=== PATIENT | male | born 1935 | race Caucasian/White ===

== ENCOUNTER 2018-12-06 08:32 | Emergency (ER) | payer MEDICARE, MEDICAID ==
[2018-12-06] MEDS ORDERED: Sodium Chloride 0.9% 1,000 ML IV ONE (08:46)
--- NOTE | 2018-12-06 09:11 | CR ---
[id number] RAD/RAD Chest PA or AP 1V EXAM: FRONTAL CHEST INDICATION: Fall with head trauma. COMPARISON: None. DISCUSSION: The lungs are hypoinflated. Chronic right rib fractures. Cardiomegaly without evidence of congestive heart failure. IMPRESSION: 1. No acute findings. Jairo Doran MD 12/06/18 0909 Thank you for allowing us to participate in the care of your patient.
[2018-12-06 09:26] LABS: ANION GAP 13.3 mmol/L (10-20)
--- NOTE | 2018-12-06 09:55 | CT ---
[id number] CT/CT Head WO IV EXAM: CT Head WO IV CLINICAL DATA: TRAUMA COMPARISON: NO PREVIOUS SIMILAR EXAM IS AVAILABLE FOR COMPARISON. FINDINGS: There is no mass or mass effect. There is no hemorrhage or hydrocephalus. There are no extra-axial fluid collections. There are no sites of abnormal attenuation. IMPRESSION: NO PLAIN CT EVIDENCE OF ACUTE INTRACRANIAL PROCESS. Budyd Oneal MD 12/06/18 0952 Thank you for allowing us to participate in the care of your patient.
[2018-12-06] MEDS ORDERED: cefTRIAXone 2 GM Vial IVPUSH ONE (10:35)
--- NOTE | 2018-12-07 07:02 | EDM.PDOC ---
ED HPI GENERAL MEDICAL PROBLEM - General Chief Complaint: Head Injury Time Seen by Provider: 12/06/18 08:40 Source of Information: Reports: Patient History Limitations: Reports: No Limitations - History of Present Illness INITIAL COMMENTS - FREE TEXT/NARRATIVE: Pt. presents to ER with fall, decreased loc, an lethergy. Pt. has been lethargic for several days prior to the fall. He had the fall in the night and was sent to ER in the AM. He has had coarse lung sounds. No nausea, vomiting, or diarrhea. No melena, hematochezia, or hemetemesis. Pt. was transported via EMS. EMS states that he was minimally responsive. Pt. was able to answer questions, however. He has dementia and offers no complaint. Onset Date: 12/06/18 Location: Reports: Generalized - Related Data Allergies Allergy/AdvReac Type Severity Reaction Status Date / Time caffeine Allergy Cannot Verified 12/06/18 08:46 Remember carbidopa [From Sinemet] Allergy Cannot Verified 12/06/18 08:46 Remember levodopa [From Sinemet] Allergy Cannot Verified 12/06/18 08:46 Remember morphine Allergy Cannot Verified 12/06/18 08:39 Remember Home Meds: Home Meds Budesonide/Formoterol Fumarate [Symbicort 160-4.5 Mcg Inhaler] 2 puff BID [History] Gabapentin [Neurontin] 300 mg DAILY 12/06/18 [History] Levothyroxine Sodium [Synthroid] 75 mcg DAILY 12/06/18 [History] Pantoprazole Sodium [Protonix] 40 mg PO DAILY 12/06/18 [History] Pramoxine HCl [Sarna Sensitive] 1 applic DAILY 12/06/18 [History] QUEtiapine Fumarate [Quetiapine Fumarate] 100 mg DAILY 12/06/18 [History] Sertraline HCl 50 mg DAILY 12/06/18 [History] Tamsulosin HCl 1 cap DAILY 12/06/18 [History] Triamcinolone Acetonide [Triamcinolone Acetonide 0.5%] 1 applic BID 12/06/18 [ History] Past Medical History HEENT History: Reports: Hard of Hearing Respiratory History: Reports: Asthma, COPD Gastrointestinal History: Reports: Chronic Constipation, GERD, Other (See Below) Other Gastrointestinal History: 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 Genitourinary History: Reports: Other (See Below) Other Genitourinary History: benign prostatic hyperplasia Musculoskeletal History: Reports: Other (See Below) Other Musculoskeletal History: muscle weakness Neurological History: Reports: Alzheimers Disease, Other (See Below) Other Neuro History: restless legs Psychiatric History: Reports: Anxiety, Dementia, Depression, Other (See Below) Other Psychiatric History: personality and behavioral disorder Endocrine/Metabolic History: Reports: Hypothyroidism Hematologic History: Reports: Anemia Social & Family History - Tobacco Use Smoking Status *Q: Unknown Ever Smoked - Recreational Drug Use Recreational Drug Use: No ED ROS GENERAL - Review of Systems Review Of Systems: ROS reveals no pertinent complaints other than HPI. ED EXAM, HEAD INJURY - Physical Exam Exam: See Below Exam Limited By: No Limitations General Appearance: Alert, WD/WN, No Apparent Distress Head: Atraumatic, Normocephalic Eyes: Bilateral Eye: EOMI, Normal Fundi, Normal Inspection, PERRL Ears: Normal External Exam, Normal Canal, Hearing Grossly Normal, Normal TMs Nose: Normal Inspection, Normal Mucousa, No Blood Throat/Mouth: Normal Inspection, Normal Lips, Normal Teeth, Normal Gums, Normal Oropharynx, Normal Voice, No Airway Compromise Neck: Non-Tender, Full Range of Motion, Normal Alignment, Normal Inspection Respiratory: No Respiratory Distress, No Accessory Muscle Use, Chest Non-Tender , Rhonchi Cardiovascular: Normal Peripheral Pulses, Regular Rate, Rhythm, No Edema, No JVD , No Murmur GI/Abdominal Exam: Normal Bowel Sounds, Soft, Non-Tender, No Distention (Male) Exam: Deferred Rectal (Males) Exam: Deferred Back Exam: Full Range of Motion, Normal Inspection, NT Extremities: Normal Inspection, Normal Range of Motion, Non-Tender, No Pedal Edema, Normal Capillary Refill Neurologic: labor/excavator II-XII nml As Tested, No Motor/Sensory Deficits, Alert, Normal Mood/Affect, Oriented x 3 DTR: 2+: Patella (R), Patella (L) Skin: Warm/Dry, Pallor - Teressa Coma Score Best Eye Response (Teressa): (4) Open Spontaneously Best Verbal Response (Teressa): (5) Oriented Best Motor Response ([place]): (6) Obeys Commands Course - Vital Signs Last Recorded V/S: Last Vital Signs Temp 36.5 C 12/06/18 08:32 Pulse 73 12/06/18 10:49 Resp 22 H 12/06/18 10:49 BP 120/65 12/06/18 10:49 Pulse Ox 94 L 12/06/18 10:49 - Orders/Labs/Meds Orders: Active Orders 24 hr Category Date Time Status Dietary Supplements [RC] BIDMEALS Care 12/06/18 10:35 Active Insert Urinary Catheter [OM.PC] Q24H Care 12/06/18 10:00 Ordered Oxygen Therapy [RC] PRN Care 12/06/18 08:40 Active Urinary Catheter Assessment [RC] ASDIRECTED Care 12/06/18 10:14 Active CULTURE BLOOD [BC] Stat Lab 12/06/18 08:52 Received CULTURE BLOOD [BC] Stat Lab 12/06/18 08:58 Received Blood Culture x2 Reflex Set [OM.PC] Stat Oth 12/06/18 08:42 Ordered Labs: Laboratory Tests 12/06/18 12/06/18 12/06/18 Range/Units 08:52 08:52 08:52 WBC 8.8 (4.0-10.0) x10^3/uL RBC 3.87 L (4.5-6.0) x10^6/uL Hgb 12.0 L (14.0-18.0) g/dL Hct 37.7 L (40.0-52.0) % MCV 97.4 H (78.0-93.0) fL MCH 31.0 (26.0-32.0) pg MCHC 31.8 L (32.0-36.0) g/dL RDW Coeff of Monica 13.3 (10.0-15.0) % Plt Count 205 (130-400) x10^3/uL Neut % (Auto) 78.8 (50.0-80.0) % Lymph % (Auto) 9.4 L (25.0-50.0) % [place] % (Auto) 9.0 (2.0-11.0) % Eos % (Auto) 2.7 (0.0-4.0) % Baso % (Auto) 0.1 L (0.2-1.2) % PT 10.3 (9.6-11.4) SEC INR 1.0 L (2.0-3.5) Sodium 141 (136-145) mmol/L Potassium 4.3 (3.5-5.1) mmol/L Chloride 106 (98-107) mmol/L Carbon Dioxide 26 (21-32) mmol/L Anion Gap 13.3 (10-20) mmol/L BUN 24 H (7-18) mg/dL Creatinine 1.4 H (0.70-1.30) mg/dL Est Cr Clr Drug Dosing 37.32 mL/min Estimated GFR (MDRD) 48 Glucose 135 H (74-106) mg/dL Lactic Acid (0.4-2.0) mmol/L Calcium 8.5 (8.5-10.1) mg/dL Corrected Calcium 9.14 (8.5-10.1) mg/dL Phosphorus 2.8 (2.6-4.7) mg/dL Magnesium 2.0 (1.8-2.4) mg/dL Total Bilirubin 0.9 (0.2-1.0) mg/dL AST 21 (15-37) U/L ALT 18 (16-63) U/L Alkaline Phosphatase 66 (46-116) U/L C-Reactive Protein 5.2 H (<=0.9) mg/dL Total Protein 6.8 (6.4-8.2) g/dL Albumin 3.2 L (3.4-5.0) g/dL Globulin 3.6 Albumin/Globulin Ratio 0.89 Urine Color (YELLOW) Urine Appearance (CLEAR) Urine pH (5.0-8.0) Ur Specific [place] Urine Protein (NEGATIVE) mg/dL Urine Glucose (UA) (NEGATIVE) mg/dL Urine Ketones (NEGATIVE) mg/dL Urine Occult Blood (NEGATIVE) Urine Nitrite (NEGATIVE) Urine Bilirubin (NEGATIVE) Urine Urobilinogen (0.2) EU/dL Ur Leukocyte Esterase (NEGATIVE) Urine RBC (NOT SEEN) /HPF Urine WBC (NOT SEEN) /HPF Ur Squamous Epith Cells (NEGATIVE) /HPF Urine Bacteria (NEGATIVE) /HPF Granular Casts (NEGATIVE) /HPF Urine Mucus (NEGATIVE) /LPF 12/06/18 12/06/18 Range/Units 08:52 10:05 WBC (4.0-10.0) x10^3/uL RBC (4.5-6.0) x10^6/uL Hgb (14.0-18.0) g/dL Hct (40.0-52.0) % MCV (78.0-93.0) fL MCH (26.0-32.0) pg MCHC (32.0-36.0) g/dL RDW Coeff of Monica (10.0-15.0) % Plt Count (130-400) x10^3/uL Neut % (Auto) (50.0-80.0) % Lymph % (Auto) (25.0-50.0) % [place] % (Auto) (2.0-11.0) % Eos % (Auto) (0.0-4.0) % Baso % (Auto) (0.2-1.2) % PT (9.6-11.4) SEC INR (2.0-3.5) Sodium (136-145) mmol/L Potassium (3.5-5.1) mmol/L Chloride (98-107) mmol/L Carbon Dioxide (21-32) mmol/L Anion Gap (10-20) mmol/L BUN (7-18) mg/dL Creatinine (0.70-1.30) mg/dL Est Cr Clr Drug Dosing mL/min Estimated GFR (MDRD) Glucose (74-106) mg/dL Lactic Acid 2.1 H* (0.4-2.0) mmol/L Calcium (8.5-10.1) mg/dL Corrected Calcium (8.5-10.1) mg/dL Phosphorus (2.6-4.7) mg/dL Magnesium (1.8-2.4) mg/dL Total Bilirubin (0.2-1.0) mg/dL AST (15-37) U/L ALT (16-63) U/L Alkaline Phosphatase (46-116) U/L C-Reactive Protein (<=0.9) mg/dL Total Protein (6.4-8.2) g/dL Albumin (3.4-5.0) g/dL Globulin Albumin/Globulin Ratio Urine Color Dark yellow H (YELLOW) Urine Appearance Clear (CLEAR) Urine pH 6.0 (5.0-8.0) Ur Specific [place] 1.015 Urine Protein Negative (NEGATIVE) mg/dL Urine Glucose (UA) Negative (NEGATIVE) mg/dL Urine Ketones Negative (NEGATIVE) mg/dL Urine Occult Blood Negative (NEGATIVE) Urine Nitrite Negative (NEGATIVE) Urine Bilirubin Negative (NEGATIVE) Urine Urobilinogen 0.2 (0.2) EU/dL Ur Leukocyte Esterase Negative (NEGATIVE) Urine RBC 0-5 (NOT SEEN) /HPF Urine WBC Not seen (NOT SEEN) /HPF Ur Squamous Epith Cells Not seen (NEGATIVE) /HPF Urine Bacteria Rare (NEGATIVE) /HPF Granular Casts Occasional H (NEGATIVE) /HPF Urine Mucus Rare H (NEGATIVE) /LPF Meds: Medications Discontinued Medications Generic Name Dose Route Start Last Admin Trade Name Freq PRN Reason Stop Dose Admin Ceftriaxone Sodium 2 gm 12/06/18 10:35 12/06/18 10:45 Rocephin IVPUSH 12/06/18 10:36 2 gm STAT ONE Administration Sodium Chloride 1,000 mls @ 250 mls/hr 12/06/18 08:46 12/06/18 09:15 Normal Saline IV 12/06/18 12:45 250 mls/hr .BOLUS ONE Administration - Radiology Interpretation Free Text/Narrative:: CXR and head CT are negative Departure - Departure Time of Disposition: 11:00 Disposition: DC/Tfer to SNF 03 Condition: Good Clinical Impression: Concussion injury of brain, Acute bronchitis - Discharge Information Instructions: Dehydration, Adult, [id number], Head Injury, Adult, Easy-to- Read, Community-Acquired Pneumonia, Adult Referrals: Bess Alanis MD [Primary Care Provider] - Forms: ED Department Discharge Additional Instructions: Doxycycline 100mg twice daily Follow-up in clinic in 7-10 days Tylenol and tylenol for fever/discomfort - My Orders Last 24 Hours: My Active Orders 12/06/18 08:40 Oxygen Therapy [RC] PRN 12/06/18 08:42 Blood Culture x2 Reflex Set [OM.PC] Stat 12/06/18 08:52 CULTURE BLOOD [BC] Stat 12/06/18 08:58 CULTURE BLOOD [BC] Stat 12/06/18 10:00 Insert Urinary Catheter [OM.PC] Q24H 12/06/18 10:14 Urinary Catheter Assessment [RC] ASDIRECTED 12/06/18 10:35 Dietary Supplements [RC] BIDMEALS - Assessment/Plan Last 24 Hours: My Active Orders 12/06/18 08:40 Oxygen Therapy [RC] PRN 12/06/18 08:42 Blood Culture x2 Reflex Set [OM.PC] Stat 12/06/18 08:52 CULTURE BLOOD [BC] Stat 12/06/18 08:58 CULTURE BLOOD [BC] Stat 12/06/18 10:00 Insert Urinary Catheter [OM.PC] Q24H 12/06/18 10:14 Urinary Catheter Assessment [RC] ASDIRECTED 12/06/18 10:35 Dietary Supplements [RC] BIDMEALS Plan: Chest x-ray is negative. There was significant bilateral rhonchi. Given the patient's pre-fall symptoms, he was started on Doxycycline. Doxycycline 100mg twice daily Follow-up in clinic in 7-10 days Tylenol and tylenol for fever/discomfort
== END 2018-12-06 11:00 ==
LOC: VM.ED 08:32
DX: S06.0X9A Concussion with loss of consciousness of unspecified duration, initial encounter (principal); J20.9 Acute bronchitis, unspecified; E03.9 Hypothyroidism, unspecified; J44.9 Chronic obstructive pulmonary disease, unspecified; Z88.5 Allergy status to narcotic agent; Z88.8 Allergy status to other drugs, medicaments and biological substances; Z79.899 Other long term (current) drug therapy; X58.XXXA Exposure to other specified factors, initial encounter
CPT/HCPCS: 36415; 70450; 71045; 80053; 81001; 83605; 83735; 84100; 85025; 85610; 86140; 87040; 87804; 87804-59; 96361; 96374; 99285; J0696; J7030

== ENCOUNTER 2021-01-29 12:12 | Emergency (ER) | payer MEDICARE, MEDICAID ==
[2021-01-29] MEDS ORDERED: Glucose Gel 15 GM in 37.5 GM Tube PO ONE (12:35)
--- NOTE | 2021-01-29 13:06 | CR ---
[id number] RAD/RAD Chest PA or AP 1V EXAM: RAD Chest PA or AP 1V INDICATION: WEAKNESS, WHEEZING. COMPARISON: December 06, 2018 DISCUSSION: Cardiomediastinal silhouette is stable in size and contour. Central pulmonary vascular congestion. No infiltrate, effusion or pneumothorax. IMPRESSION: Central pulmonary vascular congestion the setting of cardiomegaly. Booker Nails DO 01/29/21 [id number] Thank you for allowing us to participate in the care of your patient.
--- NOTE | 2021-01-29 13:14 | EDM.PDOC ---
ED HPI GENERAL MEDICAL PROBLEM - General Stated Complaint: weakness Time Seen by Provider: 01/29/21 12:12 Source of Information: Reports: Patient, EMS, Retirement Records History Limitations: Reports: Altered Mental Status (history of alzheimers) - History of Present Illness INITIAL COMMENTS - FREE TEXT/NARRATIVE: Patient [facility] department [facility] with concerns of weakness and a near fall. HPI is primarily obtained from EMS and the [facility] as the patient is pleasantly confused with a history of Alzheimer's. According to EMS report from the nurses the patient was ambulating to lunch when he told the staff that he was feeling woozy and he was going to pass out. He did not fall. They were able to help him into a chair. They brought him to his room and laid him flat. Initially his blood pressure when he initially felt woozy was about 70. It was still only about 105 after he had been laying flat for half an hour. The ambulance was then summoned to bring the patient to the emergency department. HPI rest of the details are unobtainable as the patient is pleasantly confused with Alzheimer's and does not complain of anything. He did have breakfast he did not have lunch. According to the EMS report he had had a recent change in his quetiapine and discontinuation of his Abilify. Unsure of covid exposure or symptoms. - Related Data Allergies Allergy/AdvReac Type Severity Reaction Status Date / Time caffeine Allergy Cannot Verified 01/29/21 13:36 Remember carbidopa [From Sinemet] Allergy Cannot Verified 01/29/21 13:36 Remember levodopa [From Sinemet] Allergy Cannot Verified 01/29/21 13:36 Remember morphine Allergy Cannot Verified 01/29/21 13:36 Remember Home Meds: Home Meds Budesonide/Formoterol Fumarate [Symbicort 160-4.5 Mcg Inhaler] 2 puff INH BID 12/06/18 [History] Gabapentin [Neurontin] 300 mg PO DAILY 12/06/18 [History] Levothyroxine Sodium [Synthroid] 75 mcg PO DAILY 12/06/18 [History] Pantoprazole Sodium [Protonix] 40 mg PO DAILY 12/06/18 [History] QUEtiapine Fumarate [Quetiapine Fumarate] 50 mg PO BID 12/06/18 [History] Acetaminophen [Tylenol Extra Strength] 1,000 mg PO TID 01/29/21 [History] Albuterol Sulfate 2.5 mg IH Q4H PRN 01/29/21 [History] Albuterol Sulfate [Albuterol Sulfate HFA] 2 puff INH BID PRN 01/29/21 [History] Alum Hydrox/Mag Hydrox/Simeth [Maalox Advanced] 30 ml PO QID PRN 01/29/21 [History] Bismuth Subsalicylate [Pepto Bismol] 15 ml PO DAILY PRN 01/29/21 [History] Calcium Carbonate [Tums] 500 mg PO TID PRN 01/29/21 [History] Doxycycline [Vibra-Tabs] 100 mg PO Q12HR #14 tab 01/29/21 [Rx] Doxycycline [Vibra-Tabs] 100 mg PO Q12HR #14 tab 01/29/21 [Rx] Magnesium Hydroxide [Milk of Magnesia] 30 ml PO DAILY PRN 01/29/21 [History] Melatonin/Pyridoxine HCl (B6) [Melatonin 3 mg Tablet] 9 mg PO BEDTIME 01/29/21 [History] Multivitamin-Min/Iron/FA/Vit K [Multi-Day Plus Minerals Tablet] 1 each PO DAILY 01/29/21 [History] Non-Formulary Medication [NF Drug] 1 dose TOP BID PRN 01/29/21 [History] Phenyleph/Mineral Oil/Petrolat [Preparation H Ointment] 1 dose RC Q6H PRN 01/29/21 [History] Phenyleph/Pramoxin/Glycr/w.Pet [Hemorrhoidal Cream] 1 dose TOP BID PRN 01/29/21 [History] Sertraline HCl [Zoloft] 200 mg PO DAILY 01/29/21 [History] Tamsulosin HCl [Flomax] 0.4 mg PO DAILY 01/29/21 [History] bisacodyL [Bisacodyl] 5 mg PO DAILY PRN 01/29/21 [History] guaiFENesin [Robitussin] 10 mg PO Q4H PRN 01/29/21 [History] lidocaine HCL [Lidocaine HCl Viscous] 5 ml PO Q8H PRN 01/29/21 [History] polyethylene glycoL 3350 [MiraLAX] 17 gm PO DAILY 01/29/21 [History] predniSONE [Prednisone] 40 mg PO DAILY 4 Days #8 tablet 01/29/21 [Rx] predniSONE [Prednisone] 40 mg PO DAILY 4 Days #8 tablet 01/29/21 [Rx] Past Medical History HEENT History: Reports: Hard of Hearing Respiratory History: Reports: Asthma, COPD Gastrointestinal History: Reports: Chronic Constipation, GERD, Other (See Below) Other Gastrointestinal History: 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 Genitourinary History: Reports: Other (See Below) Other Genitourinary History: benign prostatic hyperplasia Musculoskeletal History: Reports: Other (See Below) Other Musculoskeletal History: muscle weakness Neurological History: Reports: Alzheimers Disease, Other (See Below) Other Neuro History: restless legs Psychiatric History: Reports: Anxiety, Dementia, Depression, Other (See Below) Other Psychiatric History: personality and behavioral disorder Endocrine/Metabolic History: Reports: Hypothyroidism Hematologic History: Reports: Anemia ED ROS GENERAL - Review of Systems Review Of Systems: Unable To Obtain Reason Not Obtained: Alzheimers ED EXAM, NEURO - Physical Exam Exam: See Below Text/Narrative:: Alert pleasantly confused cooperative and interactive directable. Exam Limited By: Altered Mental Status General Appearance: Alert, WD/WN, No Apparent Distress Eye Exam: Bilateral Eye: EOMI Ears: Normal External Exam Nose: Normal Inspection Throat/Mouth: Normal Inspection Head Exam: Atraumatic, Normocephalic Neck: Normal Inspection, Supple, Non-Tender Respiratory/Chest: No Accessory Muscle Use, Chest Non-Tender, Decreased Breath Sounds (Through out. ), Wheezing (Audible expiratory wheezing, inspiratory and expiratory auscultative wheezing. ). No: Crackles, Accessory Muscle Use Cardiovascular: Normal Peripheral Pulses, Regular Rate, Rhythm GI/Abdominal: Normal Bowel Sounds, Soft, Non-Tender (Male) Exam: Deferred Rectal (Males) Exam: Deferred Neurological: Alert, Other (Pleasantly confused and baseline. ) Back Exam: Normal Inspection Extremities: Normal Inspection, No Pedal Edema, Normal Capillary Refill Psychiatric: Normal Affect Skin Exam: Warm, Dry, Intact, Normal Color #1 Interpretation EKG Date: 01/29/21 Time: 12:50 Rhythm: NSR Rate (Beats/Min): 79 [place]: Normal P-Wave: Present QRS: Normal ST-T: Normal QT: Normal Course - Vital Signs Last Recorded V/S: Last Vital Signs Temp 97.3 F 01/29/21 12:15 Pulse 89 01/29/21 14:30 Resp 16 01/29/21 14:30 BP 118/68 01/29/21 14:30 Pulse Ox 98 01/29/21 14:30 - Orders/Labs/Meds Labs: Laboratory Tests 01/29/21 01/29/21 01/29/21 Range/Units 12:39 12:39 12:39 WBC 7.4 (4.0-10.0) x10^3/uL RBC 3.79 L (4.5-6.0) x10^6/uL Hgb 11.2 L (14.0-18.0) g/dL Hct 34.9 L (40.0-52.0) % MCV 92.1 D (78.0-93.0) fL MCH 29.6 (26.0-32.0) pg MCHC 32.1 (32.0-36.0) g/dL RDW Coeff of Monica 14.5 (10.0-15.0) % Plt Count 242 (130-400) x10^3/uL Neut % (Auto) 67.4 (50.0-80.0) % Lymph % (Auto) 18.1 L (25.0-50.0) % Bates % (Auto) 9.5 (2.0-11.0) % Eos % (Auto) 4.5 H (0.0-4.0) % Baso % (Auto) 0.5 (0.2-1.2) % Sodium 132 L (136-145) mmol/L Potassium 4.7 (3.5-5.1) mmol/L Chloride 97 L (98-107) mmol/L Carbon Dioxide 31 (21-32) mmol/L Anion Gap 8.7 (5-15) mmol/L BUN 22 H (7-18) mg/dL Creatinine 1.2 (0.70-1.30) mg/dL Est Cr Clr Drug Dosing TNP Estimated GFR (MDRD) 57 Glucose 68 L (74-106) mg/dL POC Glucose (74-106) mg/dL Lactic Acid 1.1 (0.4-2.0) mmol/L Calcium 8.4 L (8.5-10.1) mg/dL Corrected Calcium 9.04 (8.5-10.1) mg/dL Magnesium 2.1 (1.8-2.4) mg/dL Total Bilirubin 0.6 (0.2-1.0) mg/dL AST 22 (15-37) U/L ALT 23 (16-63) U/L Alkaline Phosphatase 70 (46-116) U/L Troponin I High Sens 7 (<=76) ng/L C-Reactive Protein 1.4 H (<=0.9) mg/dL NT-Pro-B Natriuret Pep 458 H (<=450) pg/mL Total Protein 6.6 (6.4-8.2) g/dL Albumin 3.2 L (3.4-5.0) g/dL Globulin 3.4 Albumin/Globulin Ratio 0.94 /18/ Range/Units 13:48 WBC (4.0-10.0) x10^3/uL RBC (4.5-6.0) x10^6/uL Hgb (14.0-18.0) g/dL Hct (40.0-52.0) % MCV (78.0-93.0) fL MCH (26.0-32.0) pg MCHC (32.0-36.0) g/dL RDW Coeff of Monica (10.0-15.0) % Plt Count (130-400) x10^3/uL Neut % (Auto) (50.0-80.0) % Lymph % (Auto) (25.0-50.0) % Bates % (Auto) (2.0-11.0) % Eos % (Auto) (0.0-4.0) % Baso % (Auto) (0.2-1.2) % Sodium (136-145) mmol/L Potassium (3.5-5.1) mmol/L Chloride (98-107) mmol/L Carbon Dioxide (21-32) mmol/L Anion Gap (5-15) mmol/L BUN (7-18) mg/dL Creatinine (0.70-1.30) mg/dL Est Cr Clr Drug Dosing Estimated GFR (MDRD) Glucose (74-106) mg/dL POC Glucose 118 H (74-106) mg/dL Lactic Acid (0.4-2.0) mmol/L Calcium (8.5-10.1) mg/dL Corrected Calcium (8.5-10.1) mg/dL Magnesium (1.8-2.4) mg/dL Total Bilirubin (0.2-1.0) mg/dL AST (15-37) U/L ALT (16-63) U/L Alkaline Phosphatase (46-116) U/L Troponin I High Sens (<=76) ng/L C-Reactive Protein (<=0.9) mg/dL NT-Pro-B Natriuret Pep (<=450) pg/mL Total Protein (6.4-8.2) g/dL Albumin (3.4-5.0) g/dL Globulin Albumin/Globulin Ratio Meds: Medications Discontinued Medications Generic Name Dose Route Start Last Admin Trade Name Freq PRN Reason Stop Dose Admin Albuterol/Ipratropium 3 ml 01/29/21 14:04 01/29/21 14:05 Albuterol/Ipratropium 3.0-0.5 Mg/3 Ml Neb Soln NEB 01/29/21 14:05 3 ml ONETIME ONE Administration Budesonide 0.5 mg 01/29/21 14:18 01/29/21 14:25 Budesonide 0.5 Mg/2 Ml Neb Susp NEB 01/29/21 14:19 0.5 mg ONETIME ONE Administration Dextrose 15 gm 01/29/21 12:35 01/29/21 12:46 Glucose Gel 15 Gm In 37.5 Gm Tube PO 01/29/21 12:36 15 gm ONETIME ONE Administration Doxycycline Hyclate 100 mg 01/29/21 14:14 01/29/21 14:25 Doxycycline 100 Mg Cap PO 01/29/21 14:15 100 mg ONETIME ONE Administration Furosemide 40 mg 01/29/21 14:02 Furosemide 40 Mg/4 Ml Vial IV 01/29/21 14:03 ONETIME ONE Lorazepam 1 mg 01/29/21 15:31 01/29/21 15:45 Lorazepam 2 Mg/Ml Sdv IM 01/29/21 15:32 1 mg ONETIME ONE Administration Lorazepam 1 mg 01/29/21 15:33 01/29/21 18:54 Lorazepam 1 Mg Tab PO 01/29/21 15:34 Not Given ONETIME ONE Lorazepam 1 mg 01/29/21 15:41 01/29/21 18:51 Lorazepam 2 Mg/Ml Sdv IM 01/29/21 15:42 Not Given ONETIME ONE Prednisone 40 mg 01/29/21 14:11 01/29/21 14:25 Prednisone 20 Mg Tab PO 01/29/21 14:12 40 mg ONETIME ONE Administration - Radiology Interpretation Free Text/Narrative:: Chest x-ray per radiology central pulmonary vascular congestion the setting of cardiomegaly. No infiltrate effusion or pneumothorax. - Re-Assessments/Exams Free Text/Narrative Re-Assessment/Exam: 01/29/21 Patient's blood sugar upon arrival was mid 60s. It was about 70 at the [facility]. He is not diabetic and is not on any medications. He was given a tube of oral glucose as well as a lunch tray. Laboratory evaluation was drawn. EKG was unremarkable. Repeat blood sugar showed a blood sugar of 112. He was given a neb nebulizer as well as budesonide nebulizer as well as 40 mg of prednisone orally and 100 mg of doxycycline for the concerns of COPD exacerbation. Laboratory evaluation shows white blood cell count of 7.4 hemoglobin 11.2 at baseline platelets 242. CMP sodium 132 BUN 22 creatinine 1.2 glucose 68 normal liver enzymes. C-reactive protein mildly elevated at 1.4 minimally at best. Troponin is negative high-sensitivity at 7. proBNP 458 with an upper limit of 450 He has no crackles in his lung sounds. He is much better and his wheezing is almost completely resolved after the above therapy including the DuoNeb and budesonide. I think that this is most likely COPD exacerbation versus congestive heart failure. Unsure of the cause of his hypotension if it had something to do with his lower blood sugars but we were able to ambulate him around the emergency department multiple times he was alert appropriate denied any complaints and steady on his feet. We will discharge him home back to the [facility]. I did speak with his primary care provider Dr. Alanis about my concerns of a COPD exacerbation as well as the concerns of the [facility] of increasing aggressive behavior. She does not manage his psychiatric medications and will consult the [facility] psychiatrist who is the patient's primary psychiatrist. As we attempted to get the patient back to the [facility] he clearly had the development of sundowners. He became quite agitated combative and more confused. He actually got to the point where he reared back his arm to punch myself as well as the nursing staff but did not do so. Typical attempts were made to verbally de-escalate the situation but were unsuccessful. Eventually the patient was given 1 mg of Ativan IM and we did have improvement of his agitation. He was still alert appropriate and ambulatory. He spoke with his son on the phone and was able to talk him into going back to the [facility]. He will be discharged home and followed up with his primary psychiatrist for his behavioral disorders. Departure - Departure Time of Disposition: 14:24 Disposition: DC/Tfer to SNF 03 Clinical Impression: COPD with exacerbation, Hypoglycemia, Alzheimer disease - Discharge Information Prescriptions: predniSONE [Prednisone] 40 mg PO DAILY 4 Days #8 tablet predniSONE [Prednisone] 40 mg PO DAILY 4 Days #8 tablet Doxycycline [Vibra-Tabs] 100 mg PO Q12HR #14 tab Doxycycline [Vibra-Tabs] 100 mg PO Q12HR #14 tab Referrals: Aimee Grigsby MD [Primary Care Provider] - Forms: ED Department Discharge Additional Instructions: If episode similar in the future check the blood sugar and treat accordingly. Continue previous medications. Start Prednisone 40mg daily for the next 4 days. RX to [facility]. Doxycycline 100mg twice daily for the next 7 days. RX to [facility] pharmacy. Remember albuterol nebs prn for wheezing SOB cough. Dr Alanis is aware of the plan and has been discussed with her. Recheck with PCP in one week telemedicine is good. Sepsis Event Note (ED) - Focused Exam Vital Signs: Vital Signs Temp Pulse Resp BP Pulse Ox 01/29/21 14:30 89 16 118/68 98 01/29/21 14:00 89 16 121/73 91 L 01/29/21 13:57 121/70 01/29/21 13:50 80 16 109/70 99 01/29/21 12:15 97.3 F 79 16 123/79 95
[2021-01-29 13:15] LABS: CHLORIDE,CL 97 mmol/L (98-107); SODIUM,NA 132 mmol/L (136-145)
[2021-01-29 13:16] LABS: ANION GAP 8.7 mmol/L (5-15)
[2021-01-29] MEDS ORDERED: Furosemide 40 MG/4 ML VIAL IV ONE (14:02)
[2021-01-29] MEDS ORDERED: Albuterol/Ipratropium 3.0-0.5 MG/3 ML Neb Soln NEB ONE (14:04)
[2021-01-29] MEDS ORDERED: predniSONE 20 MG Tab PO ONE (14:11)
[2021-01-29] MEDS ORDERED: Doxycycline 100 MG Cap PO ONE (14:14)
[2021-01-29] MEDS ORDERED: Budesonide 0.5 MG/2 ML Neb Susp NEB ONE (14:18)
[2021-01-29] MEDS ORDERED: LORazepam 2 MG/ML SDV IM ONE ×2 (15:31→15:41)
[2021-01-29] MEDS: LORazepam 1 MG Tab PO ONE ×2 (15:38→18:54)
== END 2021-01-29 16:10 ==
LOC: VM.ED 12:12
DX: J44.1 Chronic obstructive pulmonary disease with (acute) exacerbation (principal); G30.9 Alzheimer's disease, unspecified; K21.9 Gastro-esophageal reflux disease without esophagitis; Z88.8 Allergy status to other drugs, medicaments and biological substances; Z88.5 Allergy status to narcotic agent
CPT/HCPCS: 36415; 71045; 80053; 82962; 83605; 83735; 83880; 84484; 85025; 86140; 93005; 93010; 94640; 96372; 99284; 99285-25; A9270-GY; J2060; J7512; J7620-GY